=== PATIENT | male | born 1970 | race Hispanic/Latino ===

== ENCOUNTER 2018-01-26 18:02 | Emergency (ER) | payer SELFPAY ==
[2018-01-26] MEDS ORDERED: MOTRIN PO ONE (22:09)
--- NOTE | 2018-01-26 22:25 | Emergency Department Report ---
ED Male HPI - General Chief complaint: Urogenital-Male Stated complaint: SWOLLEN GENITALS Time Seen by Provider: 01/26/18 22:03 Source: patient Mode of arrival: Ambulatory Limitations: No Limitations - History of Present Illness Initial comments: 47-year-old male comes in for testicular swelling and testicular pain on Saturday. Patient reports that he had jumped up on a roof and then noticed he started having some testicular discomfort. He reports that the testicular comfort and started turning to more like pain in swelling. MD Complaint: testicle pain, testicle swelling -: days(s) (3) Location: left testicle Radiation: none Severity: severe Severity scale (0 -10): 8 Quality: sharp Consistency: constant Improves with: none Worsens with: palpation, movement - Related Data Previous Rx's Medication Instructions Recorded Last Taken Type Ibuprofen [Motrin 600 MG tab] 600 mg PO Q8H #30 tablet 01/26/18 Unknown Rx levoFLOXacin [Levaquin TAB] 500 mg PO QDAY 10 Days #10 tablet 01/26/18 Unknown Rx Allergies Allergy/AdvReac Type Severity Reaction Status Date / Time No Known Allergies Allergy Unverified 01/26/18 18:44 ED Review of Systems ROS: Stated complaint: SWOLLEN GENITALS Other details as noted in HPI Comment: All other systems reviewed and negative Genitourinary: testicular pain ED Past Medical Hx - Past Medical History Previous Medical History?: No - Surgical History Past Surgical History?: No - Social History Smoking Status: Never Smoker Substance Use Type: None - Medications Home Medications: Home Medications Medication Instructions Recorded Confirmed Last Taken Type Ibuprofen [Motrin 600 MG tab] 600 mg PO Q8H #30 tablet 01/26/18 Unknown Rx levoFLOXacin [Levaquin TAB] 500 mg PO QDAY 10 Days #10 tablet 01/26/18 Unknown Rx ED Physical Exam - General Limitations: No Limitations General appearance: alert, in no apparent distress - Head Head exam: Present: atraumatic, normocephalic - ENT ENT exam: Present: mucous membranes moist - Respiratory Respiratory exam: Present: normal lung sounds bilaterally. Absent: respiratory distress - Cardiovascular Cardiovascular Exam: Present: regular rate, normal rhythm. Absent: systolic murmur, diastolic murmur, rubs, gallop - exam: Present: scrotal swelling, circumcision External exam: Present: swelling - Extremities Exam Extremities exam: Present: normal inspection - Neurological Exam Neurological exam: Present: alert, oriented X3 - Psychiatric Psychiatric exam: Present: normal affect, normal mood - Skin Skin exam: Present: warm, dry, intact, normal color. Absent: rash ED Course Vital Signs 01/26/18 01/26/18 01/26/18 18:42 22:41 23:26 Temperature 97.7 F Pulse Rate 84 Respiratory 18 20 20 Rate Blood Pressure 130/81 O2 Sat by Pulse 100 Oximetry ED Medical Decision Making - Radiology Data Radiology results: report reviewed FINAL REPORT EXAM: US TESTICULAR DOPPLER COMP HISTORY: left testicular swelling and pain COMPARISON: None available. TECHNIQUE: Several real-time grayscale and color Doppler images were obtained. FINDINGS: Right testicle measures 3.0 x 2.1 x 2.5 centimeters. Left testicle measures 2.9 x 2.4 x 2.7 centimeters. Homogeneous echogenicity the bilateral testicles with vascular flow. Spectral analysis demonstrates arterial waveforms to the testicles. Prominent enlargement and vascularity left epididymis compatible with epididymitis. Small reactive left-sided hydrocele. Right epididymis is unremarkable. No hydrocele on the right. IMPRESSION: Findings compatible with left-sided epididymitis. Small reactive hydrocele on the left. Transcribed By: LMA Dictated By: DIANE FIGUEROA MD Electronically Authenticated By: DIANE FIGUEROA MD Signed Date/Time: 01/26/182329 DD/ 29 TD/TT: 01/26/182329 - Medical Decision Making Patient's been evaluated but this provider fast track. Ibuprofen given for pain management. Ultrasound ordered shows that patient has a left testicular epididymitis with a small hydrocele. We'll discharge patient on ibuprofen 600 mg every 8 hours when necessary as well as Levaquin 500 mg by mouth daily. Patient is to rest and ice his testicles ibuprofen and wear scrotal support for pain. Critical care attestation.: If time is entered above; I have spent that time in minutes in the direct care of this critically ill patient, excluding procedure time. ED Disposition Clinical Impression: Left epididymitis Disposition: DC-01 TO HOME OR SELFCARE Is pt being admited?: No Does the pt Need Aspirin: No Condition: Stable Instructions: Epididymitis (ED) Additional Instructions: Please complete antibiotics as prescribed. Pain medication as needed. Please apply ice to the scrotal area scrotal support such as a jockstrap. Please rest as much as possible decrease in movement as this can cause more pain. Follow-up with the urologist I have listed one below. Prescriptions: Ibuprofen [Motrin 600 MG tab] 600 mg PO Q8H #30 tablet levoFLOXacin [Levaquin TAB] 500 mg PO QDAY 10 Days #10 tablet Referrals: PRIMARY CAREMD [Primary Care Provider] - 3-5 Days TYLER DIAZ MD [Staff Physician] - 3-5 Days LORA BURDICK MD [Referring] - 3-5 Days LOIDA WILSON MD [Referring] - 3-5 Days RENATA SMALL MD [Referring] - 3-5 Days Forms: STI Treatment and Prevention, Work/School Release Form(ED)
--- NOTE | 2018-01-26 23:31 | Ultrasound Report ---
FINAL REPORT EXAM: US TESTICULAR DOPPLER COMP HISTORY: left testicular swelling and pain COMPARISON: None available. TECHNIQUE: Several real-time grayscale and color Doppler images were obtained. FINDINGS: Right testicle measures 3.0 x 2.1 x 2.5 centimeters. Left testicle measures 2.9 x 2.4 x 2.7 centimeters. Homogeneous echogenicity the bilateral testicles with vascular flow. Spectral analysis demonstrates arterial waveforms to the testicles. Prominent enlargement and vascularity left epididymis compatible with epididymitis. Small reactive left-sided hydrocele. Right epididymis is unremarkable. No hydrocele on the right. IMPRESSION: Findings compatible with left-sided epididymitis. Small reactive hydrocele on the left.
[2018-01-27] VITALS: BP 128/76
== END 2018-01-27 00:17 | disposition home or self-care (01) ==
LOC: ED 18:02
DX: N45.1 Epididymitis (principal)
CPT/HCPCS: 93975; 99283